=== PATIENT | male | born 1970 | race Caucasian/White ===

== ENCOUNTER 2021-12-15 14:20 | Outpatient (CLI) | payer OTHER, SELFPAY | END 2021-12-15 14:21 | disposition home or self-care (01) | LOC: ANHBWCAUD 14:20 | PROVIDERS: PCP Emergency Medicine; Visit Provider Otolaryngology | DX: H93.13 Tinnitus, bilateral (principal); H90.3 Sensorineural hearing loss, bilateral | CPT/HCPCS: 92557; 92567 ==

== ENCOUNTER 2022-01-02 14:16 | Outpatient (RCR) | payer OTHER, SELFPAY | END 2022-04-02 23:59 | disposition home or self-care (01) | LOC: ANHBWCAUD 14:16 | PROVIDERS: PCP Emergency Medicine; Visit Provider Otolaryngology | DX: Z46.1 Encounter for fitting and adjustment of hearing aid (principal) | CPT/HCPCS: V5160; V5261 ==